=== PATIENT | male | born 1960 | race African-American/Black ===

== ENCOUNTER 2023-03-17 22:22 | Emergency (ER) | payer OTHER ==
[~2023-03-17] VITALS: Ht 170.2 cm; Wt 81.8 kg
[~2023-03-17 22:22] MED LIST: ASPI-825 PO; ATEN-72 PO
[2023-03-17 22:31] VITALS: TEMP 98.6
[2023-03-17 23:05] VITALS: BP 152/88; PULSE 88; RESP 16
[2023-03-17] MEDS ORDERED: PRED-554 PO (23:08)
[2023-03-17] MEDS ORDERED: DIPH50CA37 PO (23:08)
[2023-03-17] MEDS ORDERED: MethylPREDNISolone SOD SUCC 125 MG/2 ML VIAL IM ONE (23:15)
[2023-03-17] MEDS ORDERED: DiphenhydrAMINE HCL 50 MG/ML VIAL IM ONE (23:15)
== END 2023-03-18 | disposition home or self-care (01) ==
LOC: EMS 22:25
DX: T78.1XXA Other adverse food reactions, not elsewhere classified, initial encounter (principal); I10 Essential (primary) hypertension; F17.210 Nicotine dependence, cigarettes, uncomplicated; Z91.010 Allergy to peanuts; Z91.018 Allergy to other foods; X58.XXXA Exposure to other specified factors, initial encounter
CPT/HCPCS: 99284; 96372; J1200; J2930